=== PATIENT | female | born 1975 | race Two or more races ===

== ENCOUNTER 2021-05-19 05:11 | Day surgery (SDC) | payer OTHER | END 2021-05-19 09:20 | disposition home or self-care (01) | LOC: AMB-ENDOS 05:11 | PROVIDERS: ATTEND Surgery | DX: K29.70 Gastritis, unspecified, without bleeding (principal); K44.9 Diaphragmatic hernia without obstruction or gangrene; Z20.822 Contact with and (suspected) exposure to COVID-19 ==